=== PATIENT | male | born 1945 | race Caucasian/White ===

== ENCOUNTER → 2016-10-09 | Outpatient (CLI) | payer MEDICARE, OTHER ==
[~2016-10-09] MED LIST: Aspirin E.C. PO; Vicodin,Norco 5/325 PO; Vytorin 10/40 PO
== END | disposition home or self-care (01) ==
LOC: CDC 09:30
DX: I44.4 Left anterior fascicular block (principal); J98.4 Other disorders of lung; M75.42 Impingement syndrome of left shoulder; M25.512 Pain in left shoulder
CPT/HCPCS: 93000

== ENCOUNTER 2017-11-07 01:10 | Emergency (ER) | payer OTHER ==
[~2017-11-07] VITALS: Ht 185.4 cm; Wt 101.0 kg
[2017-11-07 01:19] VITALS: BP 114/79
== END 2017-11-07 02:02 | disposition home or self-care (01) ==
LOC: EME 01:10 → EXP 01:10
DX: Z03.89 Encounter for observation for other suspected diseases and conditions ruled out (principal)
CPT/HCPCS: 99281; 99283